=== PATIENT | female | born 1960 | race Caucasian/White ===

== ENCOUNTER → 2016-11-14 | Outpatient (CLI) | payer MEDICAID | LOC: FIMAGING 09:45 | PROVIDERS: ATTEND Family Medicine | DX: Z13.820 Encounter for screening for osteoporosis (principal) ==

== ENCOUNTER → 2017-03-01 | Outpatient (CLI) | payer MEDICAID | LOC: FIMAGING 13:26 | PROVIDERS: ATTEND Physician Assistant | DX: J40 Bronchitis, not specified as acute or chronic (principal) ==

== ENCOUNTER → 2018-07-08 | Outpatient (CLI) | payer OTHER | LOC: FIMAGING 17:42 → EDSTATUS 17:42 | DX: M16.0 Bilateral primary osteoarthritis of hip (principal) ==

== ENCOUNTER 2018-12-21 18:47 | Emergency (ER) | payer OTHER ==
[2018-12-21] MEDS ORDERED: PROMETHAZINE HCL 25 MG/ML INJ IVP ONE (19:28)
[2018-12-21] MEDS ORDERED: NS 1,000 ML IV ONE ×2 (19:28→20:30)
--- NOTE | 2018-12-21 19:29 | EDPHY ---
H & P Time Seen by Provider: 12/21/18 19:27 HPI/ROS: Chief complaint. Vomiting HPI. 57-year-old female here with vomiting that began this morning. She is unable to keep anything down. She has had some diarrhea today. No abdominal pain. Some headache and occasionally sees some white spots especially with standing. No chest pain or shortness of breath. No recent travel, exposure to Infectious Disease, bad food. No fever. No urinary symptoms other than decreased urination today ROS 10 systems were reviewed and negative with the exception of the elements mentioned in the history of present illness Past Medical/Surgical History: Depression Social History: Single, nonsmoker, no alcohol Smoking Status: Former smoker Physical Exam: General Appearance: Alert pleasant well-developed female mild distress vital signs are stable Eyes: Pupils equal and round no pallor or injection. ENT, mucous membranes are dry. No pharyngeal injection Respiratory: There are no retractions, lungs are clear to auscultation. Cardiovascular: Regular rate and rhythm. Gastrointestinal: Abdomen is soft and nontender, no masses, bowel sounds normal. Neurological: Awake and alert, sensory and motor exams grossly normal. Skin: Warm and dry, no rashes. Musculoskeletal: Neck is supple nontender. Extremities symmetrical, full range of motion. Psychiatric: Patient is oriented X 3, there is no agitation. Constitutional: Initial Vital Signs Temperature (C) 36.7 C 12/21/18 18:50 Heart Rate 79 12/21/18 18:50 Respiratory Rate 16 12/21/18 18:50 Blood Pressure 183/101 H 12/21/18 18:50 O2 Sat (%) 94 12/21/18 18:50 O2 Delivery Mode Room Air Allergies/Adverse Reactions: No Known Allergies Allergy (Verified 12/21/18 18:53) Home Medications: Medication Instructions Recorded ARIPiprazole [Abilify 2 mg (RX)] 2 mg PO HS 03/28/12 Ascorbic Acid [Vitamin C 500 mg 10,000 mg PO DAILY 03/28/12 (OTC)] Cyanocobalamin (Vitamin B-12) 5,000 mcg PO DAILY 03/28/12 [Vitamin B-12] Fish Oil/Dha/Epa [Fish Oil 1,200 1 each PO DAILY 03/28/12 mg Fish Oil] Herbals/Supplements -Info Only 1 each PO AD 03/28/12 Levothyroxine [Synthroid 75 mcg 75 mcg PO DAILY06 03/28/12 (RX)] Md tSafford 03/2803/28/12 Multivitamins [Multivitamin (OTC)] 1 each PO DAILY 03/28/12 Pharmacy Completed 03/28/12 03/28/12 buPROPion SR [Wellbutrin Sr (RX)] 150 mg PO DAILY 03/28/12 Medical Decision Making Procedures: IV normal saline with 2 L given. Phenergan IV. Tylenol by mouth for headache ED Course/Re-evaluation: Re-evaluation at 9:00 p.m.. Patient is taking sips of berto laura without vomiting. Feeling much improved Patient and I discussed laboratory evaluation, treatment plan including criteria for return importance of follow-up and further evaluation. She expresses understanding and agreement Recheck again at 9:30 p.m. Patient has no further nausea or vomiting. She feels much better Differential Diagnosis: This appears to be gastroenteritis. No evidence for acute abdominal pathology. Mild dehydration - Data Points Laboratory Results: Laboratory Results 12/21/18 19:30 12/21/18 19:30 12/21/18 12/21/18 19:30 19:30 WBC 6.08 10^3/uL 10^3/uL (3.80-9.50) RBC 4.97 10^6/uL 10^6/uL (4.18-5.33) Hgb 15.7 g/dL g/dL (12.6-16.3) Hct 45.7 % % (38.0-47.0) MCV 92.0 fL fL (81.5-99.8) MCH 31.6 pg pg (27.9-34.1) MCHC 34.4 g/dL g/dL (32.4-36.7) RDW 13.3 % % (11.5-15.2) Plt Count 334 10^3/uL 10^3/uL (150-400) MPV 8.6 fL L fL (8.7-11.7) Neut % (Auto) 67.3 % % (39.3-74.2) Lymph % (Auto) 24.5 % % (15.0-45.0) Griggs % (Auto) 5.9 % % (4.5-13.0) Eos % (Auto) 0.5 % L % (0.6-7.6) Baso % (Auto) 1.6 % % (0.3-1.7) Nucleat RBC Rel Count 0.0 % % (0.0-0.2) Absolute Neuts (auto) 4.09 10^3/uL 10^3/uL (1.70-6.50) Absolute Lymphs (auto) 1.49 10^3/uL 10^3/uL (1.00-3.00) Absolute Monos (auto) 0.36 10^3/uL 10^3/uL (0.30-0.80) Absolute Eos (auto) 0.03 10^3/uL 10^3/uL (0.03-0.40) Absolute Basos (auto) 0.10 10^3/uL 10^3/uL (0.02-0.10) Absolute Nucleated RBC 0.00 10^3/uL 10^3/uL (0-0.01) Immature Gran % 0.2 % % (0.0-1.1) Immature Gran # 0.01 10^3/uL 10^3/uL (0.00-0.10) Sodium 138 mEq/L mEq/L (135-145) Potassium 4.0 mEq/L mEq/L (3.5-5.2) Chloride 105 mEq/L mEq/L (97-110) Carbon Dioxide 19 mEq/l L mEq/l (22-31) Anion Gap 14 mEq/L mEq/L (6-14) BUN 18 mg/dL mg/dL (7-23) Creatinine 0.8 mg/dL mg/dL (0.6-1.0) Estimated GFR > 60 Glucose 105 mg/dL H mg/dL (70-100) Calcium 9.8 mg/dL mg/dL (8.5-10.4) Total Bilirubin 0.8 mg/dL mg/dL (0.1-1.4) Conjugated Bilirubin 0.3 mg/dL mg/dL (0.0-0.5) Unconjugated Bilirubin 0.5 mg/dL mg/dL (0.0-1.1) AST 143 IU/L H IU/L (14-46) ALT 111 IU/L H IU/L (9-52) Alkaline Phosphatase 122 IU/L IU/L (38-126) Total Protein 7.6 g/dL g/dL (6.3-8.2) Albumin 4.7 g/dL g/dL (3.5-5.0) Lipase 99 IU/L IU/L (23-300) Medications Given: Discontinued Medications Acetaminophen (Tylenol) 1,000 mg PO EDNOW ONE Stop: 12/21/18 21:01 Last Admin: 12/21/18 21:02 Dose: 1,000 mg Sodium Chloride (Ns) 1,000 mls @ 0 mls/hr IV EDNOW ONE; Wide Open PRN Reason: Protocol Stop: 12/21/18 19:29 Last Admin: 12/21/18 19:38 Dose: 1,000 mls Sodium Chloride (Ns) 1,000 mls @ 0 mls/hr IV EDNOW ONE; Wide Open PRN Reason: Protocol Stop: 12/21/18 20:31 Last Admin: 12/21/18 20:31 Dose: 1,000 mls Promethazine HCl (Phenergan) 12.5 mg IVP EDNOW ONE Stop: 12/21/18 19:29 Last Admin: 12/21/18 19:39 Dose: 12.5 mg Departure - Departure Disposition: Home, Routine, Self-Care Clinical Impression: Vomiting Qualifiers: Vomiting type: unspecified Vomiting Intractability: intractable Nausea presence : with nausea Qualified Code(s): R11.2 - Nausea with vomiting, unspecified Condition: Good Instructions: Promethazine (By mouth), Acute Nausea and Vomiting (ED) Additional Instructions: Frequent, small sips fluids. Gradual diet advancement Phenergan 1 pill every 4-6 hours as needed for nausea and vomiting Return for worsening symptoms Recheck in 1 day if not improving Referrals: Bobbi Babin MD [Primary Care Provider] - 1 day, if not improved
[2018-12-21 19:45] LABS: PLATELET COUNT 334 10^3/uL (150-400)
[2018-12-21] MEDS ORDERED: ACETAMINOPHEN 500 MG TAB PO ONE (21:00)
[2018-12-21] MEDS ORDERED: ONDANSETRON 4MG PREPACK#2 BTL TAKEHOME ONE (21:01)
[2018-12-21] MEDS ORDERED: PROMETHAZINE 25 MG PREPACK #4 BTL TAKEHOME ONE (21:04)
[2018-12-21 22:06] VITALS: BP 175/106
== END 2018-12-21 22:06 | disposition home or self-care (01) ==
DX: R11.2 Nausea with vomiting, unspecified (principal); E86.9 Volume depletion, unspecified
CPT/HCPCS: 96374; J2550